=== PATIENT | female | born 1980 | race Caucasian/White ===

== ENCOUNTER 2021-12-06 14:24 | Emergency (ER) | payer MEDICAID ==
[~2021-12-06] VITALS: Ht 172.7 cm; Wt 64.5 kg
[~2021-12-06 14:24] MED LIST: ASPI-611; COU3T PO; LAMO100T41 PO; LEVE10002 PO; WARF-113 PO
[2021-12-06 14:35] VITALS: BP 121/83
== END 2021-12-06 15:30 | disposition home or self-care (01) ==
LOC: ER 14:25
DX: U07.1 COVID-19 (principal)
CPT/HCPCS: 99281

== ENCOUNTER 2022-06-22 13:51 | Emergency (ER) | payer MEDICARE, MEDICAID ==
[~2022-06-22] VITALS: Ht 172.7 cm; Wt 62.0 kg
--- NOTE | 2022-06-22 17:22 | NUR ---
Pt states she has been having a headache for 2 days now and it gets worse when the pt sits up.
[2022-06-22 17:44] LABS: BASOPHILS # (AUTO) 0.1 X10'3 (0-0.2); BASOPHILS % (AUTO) 0.6 % (0-1); EOSINOPHILS # (AUTO) 0.1 X10'3 (0-0.9); EOSINOPHILS % (AUTO) 1.3 % (0-6); HEMATOCRIT 33.3 % (35.0-45.0); HEMOGLOBIN 11.3 g/dl (12.0-16.0); LYMPHOCYTES # (AUTO) 2.1 X10'3 (1.1-4.8); MEAN CORPUSCULAR HEMOGLOBIN 32.3 PG (27.0-31.0); MEAN CORPUSCULAR VOLUME 95.1 FL (78-98); MEAN PLATELET VOLUME 8.2 FL (7.4-10.4); MONOCYTES # (AUTO) 0.6 X10'3 (0-0.9); MONOCYTES % (AUTO) 6.5 % (2-12); NEUTROPHILS % (AUTO) 67.6 % (42-75); PLATELET COUNT 290 X10'3 (140-440); RED CELL DISTRIBUTION WIDTH 12.9 % (11.5-14.5); WHITE BLOOD COUNT 8.9 X10'3 (4.5-11.0)
[2022-06-22 18:00] LABS: ALANINE AMINOTRANSFERASE 23 U/L (12-78); ALBUMIN 3.3 G/DL (3.4-5.0); ALBUMIN/GLOBULIN RATIO 0.8 (1.1-1.5); ALKALINE PHOSPHATASE 59 IU/L (46-116); ANION GAP 10 (8-16); ASPARTATE AMINO TRANSFERASE 18 U/L (10-37); BILIRUBIN,TOTAL 0.2 MG/DL (0.1-1.0); BLOOD UREA NITROGEN 11 MG/DL (7-18); BUN/CREATININE RATIO 16.7 (6.6-38.0); CALCIUM 8.6 MG/DL (8.5-10.1); CHLORIDE 106 MMOL/L (99-107); CREATININE 0.66 MG/DL (0.40-0.90); GLUCOSE 99 MG/DL (70-104); SODIUM 137 MMOL/L (135-145); TOTAL CARBON DIOXIDE 21.5 MMOL/L (24-32); TOTAL PROTEIN 7.4 G/DL (6.4-8.2); eGFR > 90 ML/MIN
[2022-06-22 18:36] VITALS: BP 111/69
[2022-06-22] MEDS ORDERED: ORPH100T2 PO (19:19)
== END 2022-06-22 19:31 | disposition home or self-care (01) ==
LOC: ER 13:52
DX: R51.9 Headache, unspecified (principal); Z79.899 Other long term (current) drug therapy
CPT/HCPCS: 36415; 70450; 70490; 80053; 85025; 99284

== ENCOUNTER → 2022-06-27 | Emergency (ER) | payer MEDICARE, MEDICAID ==
[~2022-06-27] VITALS: Ht 172.7 cm; Wt 61.8 kg
[~2022-06-27] MED LIST changes: +ORPH100T2 PO
[2022-06-27 14:56] VITALS: BP 106/77
--- NOTE | 2022-06-27 18:04 | NUR ---
vascular paged at this time.
== END | disposition home or self-care (01) ==
LOC: ER 14:45
DX: I82.502 Chronic embolism and thrombosis of unspecified deep veins of left lower extremity (principal)
CPT/HCPCS: 93971; 99284

== ENCOUNTER 2025-05-08 08:40 | Emergency (ER) | payer MEDICARE, MEDICAID ==
[~2025-05-08] VITALS: Ht 175.3 cm; Wt 56.7 kg
[~2025-05-08 08:40] MED LIST changes: -ORPH100T2 PO; +ORPH100T4 PO
[2025-05-08 08:51] VITALS: BP 125/89; TEMP 98.4
--- NOTE | 2025-05-08 09:05 | Physician Documentation ---
Addendum CHIEF COMPLAINT/HPI: The patient is a 44-year-old female with a history of seizures who presents with a painful rash that began , three days ago, on the right side of her back and wrapping around her abdomen in a dermatomal distribution. REVIEW OF SYSTEMS: Constitutional: Denies chills, fatigue, fever, weight gain or weight loss. HEENT: Denies hearing loss, sinus pressure or visual changes. Respiratory: Denies cough, shortness of breath or wheezing. Cardiovascular: Denies chest pain, pain while walking (claudication), edema or palpitations. Gastrointestinal: Denies abdominal pain, blood in stool, constipation, diarrhea, heartburn, loss of appetite, nausea or vomiting. Genitourinary: Denies painful urination (dysuria), excessive amount of urine (polyuria) or urinary frequency. Metabolic/Endocrine: Denies cold intolerance, heat intolerance, excessive thirst (polydipsia) or excessive hunger (polyphagia). Neurological: Denies dizziness, extremity numbness, extremity weakness, headaches, seizures or tremors. Psychiatric: Denies anxiety or depression. Integumentary: Painful rash on back and right side of abdomen Musculoskeletal: Denies back pain, joint pain, joint swelling or neck pain. Hematologic: Denies easily bleeding, easily bruises, lymphedema or issues with blood clots. Immunologic: Denies food allergies or seasonal allergies. PHYSICAL EXAMINATION: Vitals and nursing note reviewed. Constitutional: General: Patient is awake, alert, oriented x 4 in no acute distress and well appearing. Speech is clear and lucid. Appearance: Normal appearance. Patient is not ill-appearing, toxic-appearing or diaphoretic. HENT: Head: Normocephalic and atraumatic. Mouth: Mucous membranes are moist. Pharynx: Oropharynx is clear. Eyes: General: No scleral icterus. Extraocular Movements: Extraocular movements intact. Pupils: Pupils are equal, round, and reactive to light. Neck: Supple, no Kernig or Brudzinski sign. Cardiovascular: Rate and Rhythm: Normal rate and regular rhythm. Heart sounds: No murmur heard. Pulmonary: Effort: No respiratory distress. Breath sounds: No wheezing, rhonchi or rales. Abdominal: General: There is no distension. Palpations: There is no fluid wave, hepatomegaly or mass. Tenderness: There is no abdominal tenderness. There is no guarding. Musculoskeletal: General: No swelling or deformity. Skin: Coloration: Skin is not jaundiced. Findings: Herpetiform rash back and right side of abdomen. Neurological: Mental Status: Patient is alert. MEDICAL DECISION MAKING: This 44-year-old lady presents with a rash consistent with herpes zoster on her lower back in a dermatomal distribution wrapping around to the right side of her abdomen and anterior abdomen at the level of L2-3 I am going to start her on valacyclovir 1000 mg q.8h for seven days along with [place] for pain. I recommended she obtain vaccination for herpes zoster after this episode is over. I will have her follow-up with her PCP. Departure Disposition: HOME / SELF CARE / HOMELESS Impression: Primary Impression: Herpes zoster Condition: Stable (ERASED) Prescriptions Hydrocodone Bit/Acetaminophen 5/325 MG ([place] 5/325 MG) 5 Mg/325 Mg Tablet 1-2 TAB PO Q4-6 hours PRN for pain, #20 TAB Prov: BRANDT VERDUGO MD 05/08/25 Valacyclovir HCl (Valacyclovir) 1,000 Mg Tablet 1 TABLET PO TID, #21 TABLET Prov: BRANDT VERDUGO MD 05/08/25 Education Educated: Patient Educated regarding: diagnosis, treatment, prognosis, need for follow up BRANDT VERDUGO MD May 08, 2025 09:05
[2025-05-08] MEDS ORDERED: HYDR-3965 PO (09:17)
[2025-05-08] MEDS ORDERED: VALA100031 PO (09:17)
[2025-05-08 10:05] VITALS: PULSE 65; RESP 18; O2SAT 98
== END 2025-05-08 09:48 | disposition home or self-care (01) ==
LOC: ER 08:40
DX: B02.9 Zoster without complications (principal)
CPT/HCPCS: 99283

== ENCOUNTER 2025-05-10 11:32 | Emergency (ER) | payer MEDICARE, MEDICAID ==
[~2025-05-10] VITALS: Ht 175.3 cm; Wt 56.5 kg
[~2025-05-10 11:32] MED LIST changes: +HYDR-3965 PO; +VALA100031 PO
[2025-05-10 11:36] VITALS: BP 140/78; PULSE 74; RESP 18; TEMP 98.5; O2SAT 99
--- NOTE | 2025-05-10 11:44 | Physician Documentation ---
History of Present Illness ~ Chief Complaint: Rash Stated Complaint: SHINGLES Time Seen by MD: 12:01 Primary Medical Doctor: YVONNE Souza [facility] This is a very pleasant 44-year-old female that presents to the emergency department for re-evaluation of shingles. Patient reports that she was seen here in the emergency department several days ago was diagnosed with shingles. Patient reports that she was sent home on antivirals and Babb at that time. Patient reports that the rash has spread. There is no evidence of shingles in or around her face. The area to her back has spread significantly she reports that she now has an area in her scalp. Patient reports that the rash is very painful. Patient denies fever chills nausea vomiting diarrhea at this time. Medication Reconciliation Allergies: Coded Allergies: vancomycin (Verified Allergy, Unknown, 05/10/25) Scheduled Lamotrigine (Lamictal Odt), 100 MG PO DAILY, (Reported) Levetiracetam (Keppra), 1,000 MG PO BID, (Reported) Orphenadrine Citrate (Norflex), 1 TAB PO Q12H PRN Valacyclovir HCl (Valacyclovir), 1 TABLET PO TID Warfarin Sodium* (Coumadin*), 10 MG PO fri & sat, (Reported) Warfarin Sodium* (Coumadin*), 9 MG PO S-TH, (Reported) Scheduled PRN Hydrocodone Bit/Acetaminophen 5/325 MG (Babb 5/325 MG), 1-2 TAB PO Q4-6 hours PRN for pain Miscellaneous Medications Aspirin (Aspir 81), (Reported) Past Medical History Past Medical History: *PSYCH* Past Surgical History: noncontributory Drug Use: none Lives In: Home Occupation: employed Review of Systems ROS As stated above in the HPI, otherwise all systems are reviewed and negative. Physical Exam Vital Signs: Temperature: 98.5, Source: Temporal, Heart Rate: 74, Respiratory Rate: 18, BP: 140/78, Pulse Oximetry: 99, Weight: 56.500 Oxygen Flow Rate: 0 Physical Exam VITALS: Reviewed and as above. GENERAL: Alert, no apparent distress. HEENT: Normocephalic, atraumatic, PERRL, EOMI, dry mucosa, no erythema RESPIRATORY: Lungs clear, normal breath sounds, no respiratory distress. CHEST: No accessory muscle use, no retractions CV: Regular rate, rhythm, no edema, no murmur, No: JVD GI: Soft, non-tender, bowels sounds present, no rebound, guarding, or rigidity BACK: No CVA tenderness, or swelling MUSCULOSKELETAL No deformities, no edema SKIN: Warm and dry, posterior linear distribution of herpetic lesions consistent with shingles along the dermatomes of the right posterior flank extending around to the right side, similar presentation of rash to the posterior scalp on the left side patient's head noted during examination, areas noted to the face or involving the eyes or oral cavity at this time. NEURO: Oriented x4, No motor or sensory deficit PSYCH: Normal mood and affect, no agitation Progress Results/Orders Results/Orders Vital Signs 05/10/25 11:36 Temp 98.5 Pulse 74 Resp 18 B/P (MAP) 140/78 Pulse Ox 99 O2 Flow Rate 0 Medical Decision Making Additional information obtaine: other Findings 44-year-old female with herpes zoster involving the posterior scalp and back, previously started on acyclovir and Babb, presents with moderate worsening of pain and extension of rash. Medical Decision-Making: Patient continues to have moderate pain despite opioid analgesia. 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 Gabapentin dosing will be started at a low dose and titrated as tolerated, with counseling regarding potential adverse effects (e.g., sedation, dizziness). Patient advised to follow up with primary care provider for ongoing management and reassessment of pain control, medication side effects, and monitoring for complications. Red flag symptoms reviewed: Patient instructed to return immediately for any of the following: Signs of secondary bacterial infection (increasing erythema, warmth, purulent drainage) New or worsening neurological deficits (weakness, vision changes, confusion) Severe headache, neck stiffness, or photophobia Persistent vomiting or inability to tolerate oral medications Any signs of disseminated disease (widespread rash, fever, systemic symptoms) Patient education provided regarding the natural history of herpes zoster, expected course of pain, and importance of medication adherence and follow-up. Risks and benefits of gabapentin discussed. Patient verbalized understanding and agreement with plan. Differential Dx:Considerations: Include: Abscess, AIDS/HIV, Anthrax (cutaneous), Atopic dermatitis, Candidiasis, Contact dermatitis, Drug reaction, Erythema multiforme, Erysipelas, Gangrene, Herpes zoster, Herpes simplex, Hidradenitis suppurativa, Impetigo, Intertrigo, Lymes disease, Molluscum contagiosum, Osteomyelitis, Pediculosis, Pityriasis rosea, Psoriaisis, RMSF, Rosacea, Scabies, Scarlet fever, Tinea, Urticaria, Varicella, Viral exanthema, Other Departure Disposition: 01 HOME / SELF CARE / HOMELESS Impression: Primary Impression: Shingles Condition: Stable Discharge Instructions: Shingles, [id number] Additional Instructions: You have been diagnosed with shingles (herpes zoster). You are being treated with antiviral medication, Babb (hydrocodone/acetaminophen) for pain, and gabapentin for nerve pain. Please follow these instructions carefully to help your recovery and stay safe. Medication Safety: Do not take Babb and gabapentin at the same time unless specifically instructed by your doctor. Taking these together can cause serious side effects, including extreme sleepiness, confusion, and trouble breathing. If you feel very sleepy, dizzy, confused, or have trouble waking up, stop taking both medications and get medical help right away. Take your medications exactly as prescribed. Do not take extra doses. General Care: Keep your rash clean and dry. Avoid scratching or picking at the blisters. Wash your hands often and avoid close contact with people who have not had chickenpox or the chickenpox vaccine until your rash has crusted over. Rest and drink plenty of fluids. Red Flag Symptoms Call or return to the emergency department if you have: Trouble breathing, severe sleepiness, or confusion (especially after taking pain medications) New weakness, numbness, or trouble moving parts of your body Vision changes, severe headache, or neck stiffness Rash that spreads quickly, gets much worse, or shows signs of infection (redness, warmth, pus, or swelling) Persistent vomiting or inability to keep fluids down Thoughts of harming yourself or others, or sudden changes in mood or behavior Follow-Up: Schedule a follow-up visit with your primary care provider within the next week to check your progress and adjust medications if needed. If you have any questions about your medications or symptoms, call your doctor or pharmacist. Remember: Gabapentin and Babb can make you drowsy. Do not drive or operate heavy machinery until you know how these medicines affect you. Never stop gabapentin suddenly; talk to your doctor first. Your care team is here to help you recover safely. If you have any concerns, please reach out right away. Referrals: NO PRIMARY CARE PROVIDER (PCP) Prescriptions Gabapentin (Gabapentin) 100 Mg Capsule 1 CAP PO Q8H for 30 Days, #90 CAP 0 Refills Prov: MARY CEE 05/10/25 Education Educated: Patient Educated regarding: diagnosis, treatment, need for follow up Signature Scribe Signature: A Attestation: Scribed for Mary Cee by ANYI Pryor . 05/10/25 13:15 MARY CEE May 10, 2025 11:44
[2025-05-10] MEDS ORDERED: GABA-530 PO (13:14)
== END 2025-05-10 13:36 | disposition home or self-care (01) ==
LOC: ER 11:33
DX: B02.9 Zoster without complications (principal); Z88.1 Allergy status to other antibiotic agents; Z79.899 Other long term (current) drug therapy; Z79.01 Long term (current) use of anticoagulants
CPT/HCPCS: 99283